=== PATIENT | female | born 1990 | race Caucasian/White ===

== ENCOUNTER 2022-10-31 16:04 | Inpatient (IN) | payer BC ==
[~2022-10-31 16:04] MED LIST: Bupivacaine 0.25% HCL 30 ML VIAL ONE; ePHEDrine Sulfate 50 MG/10 ML VIAL ONE
[2022-10-31] MEDS ORDERED: Butorphanol Tartrate 1 MG/ML VIAL SLOW IVP PRN (16:39)
[2022-10-31] MEDS ORDERED: NS w/ Oxytocin 30 units 500 ML IV SCH ×3 (16:39)
[2022-10-31] MEDS ORDERED: hydrALAZINE 20 MG/ML VIAL SLOW IVP PRN (16:39)
[2022-10-31] MEDS ORDERED: Lactated Ringer's 1,000 ML IV SCH (16:39)
[2022-10-31] MEDS ORDERED: Carboprost 250 MCG/ML AMP IM PRN (16:39)
[2022-10-31] MEDS ORDERED: Misoprostol 200 MCG TAB PR PRN (16:39)
[2022-10-31] MEDS ORDERED: Ondansetron PF 4 MG/2 ML Vial IVP PRN ×2 (16:39→22:55)
[2022-10-31] MEDS ORDERED: Zolpidem Tartrate 5 MG TAB PO PRN (16:39)
[2022-10-31] MEDS ORDERED: Acetaminophen 500 MG TAB PO PRN (16:39)
[2022-10-31] MEDS ORDERED: HYDROcodone/Acetaminophen 5/325 mg Tablet PO PRN ×2 (16:39)
[2022-10-31] MEDS ORDERED: Docusate 100 MG CAP PO PRN (16:39)
[2022-10-31] MEDS ORDERED: Lidocaine 1% (PF) 30 ML VIAL SC PRN (16:39)
[2022-10-31] MEDS ORDERED: Ibuprofen 800 MG TAB PO PRN (16:39)
[2022-10-31] MEDS ORDERED: Promethazine HCl 25 MG/ML VIAL IM PRN ×2 (16:39→22:55)
[2022-10-31] MEDS ORDERED: Diphenoxylate HCl/Atropine Tablet PO PRN ×2 (16:39)
[2022-10-31 17:11] VITALS: BMI 44.6
[2022-10-31 19:26] LABS: Hemoglobin 12.5 g/dL (12.0-15.5); Mean Corpuscular HGB CONC 33.4 g/dL (32.0-36.0); Mean Corpuscular Hemoglobin 29.1 pg (27.0-33.0); Mean Platelet Volume 10.8 fl (7.4-10.4); Platelet Count 342 10x3/uL (150-450); RBC Distribution Width 15.5 % (11.5-14.5); White Blood Cell (WBC) Count 13.4 10x3/uL (3.5-10.5)
[2022-10-31 20:00] LABS: HBSAg Index 0.17 S/CO (0-0.99); HIV (1/2) Antibody/Antigen Non-Reactive (NonReactive); HIV 1/2 INDEX 0.06 S/CO (<1.00); Hep B Surf Ag - L&D Non-Reactive S/CO (NonReactive)
[2022-10-31 20:01] LABS: Syphilis Antibody Nonreactive (Nonreactive); Syphilis Antibody Index 0.03 S/CO (<1.00 Non-Reactive)
[2022-10-31] MEDS ORDERED: Fentanyl 2 mcg/Bup 0.1% Cadd 100 ML ONE (22:04)
[2022-10-31] MEDS ORDERED: Lactated Ringer's 500 ML IV PRN (22:55)
[2022-10-31] MEDS ORDERED: Acetaminophen 325 MG TAB PO PRN (22:55)
[2022-10-31] MEDS ORDERED: Naloxone HCl 0.4 mg/ml Vial IVP PRN ×2 (22:55)
[2022-10-31] MEDS ORDERED: Moisturizing Cream (Eucerin) 113 GM JAR TOP PRN (22:55)
[2022-10-31] MEDS ORDERED: diphenhydrAMINE 50 MG/ML VIAL IVP PRN (22:55)
[2022-10-31] MEDS ORDERED: Fentanyl 2 mcg/Bupivacaine 0.1% Cassette 100 ML EPIDURAL SCH (23:00)
[2022-10-31] MEDS ORDERED: Communication Order-Pharmacy FS SCH (23:00)
[2022-11-01] MEDS: ePHEDrine Sulfate 50 MG/10 ML VIAL SLOW IVP PRN ×2 (00:01→00:37)
[2022-11-01] MEDS ORDERED: PHENYLEPHRINE-NS 100 MCG/ML 10 ML SYRINGE ONE ×2 (01:08→02:24)
[2022-11-01] MEDS ORDERED: HYDROcodone/Acetaminophen 5/325 mg Tablet PO PRN (07:13)
[2022-11-01] MEDS ORDERED: Zolpidem Tartrate 5 MG TAB PO PRN (07:13)
[2022-11-01] MEDS ORDERED: hydrALAZINE 20 MG/ML VIAL SLOW IVP PRN (07:13)
[2022-11-01] MEDS ORDERED: diphenhydrAMINE 25 MG CAP PO PRN (07:13)
[2022-11-01] MEDS ORDERED: Preparation H Ointment 28 GM TUBE PR PRN (07:13)
[2022-11-01] MEDS ORDERED: Bisacodyl 10 MG SUPP PR PRN (07:13)
[2022-11-01] MEDS ORDERED: Lanolin Ointment 7 GM TUBE TOP PRN (07:13)
[2022-11-01] MEDS ORDERED: Ondansetron PF 4 MG/2 ML Vial IVP PRN (07:13)
[2022-11-01] MEDS ORDERED: Misoprostol 200 MCG TAB VAG PRN (07:13)
[2022-11-01] MEDS ORDERED: Benzocaine-Menthol 82.5 ML CAN TOP PRN (07:13)
[2022-11-01] MEDS ORDERED: Milk Of Magnesia 30 ML UDCUP PO PRN (07:13)
[2022-11-01] MEDS ORDERED: Boostrix 0.5 ML (Tdap) VIAL (>/=7 yrs of age) IM ONE (07:13)
[2022-11-01] MEDS ORDERED: NS w/ Oxytocin 30 units 500 ML IV SCH (07:15)
[2022-11-01] MEDS: HYDROcodone/Acetaminophen 5/325 mg Tablet PO PRN (09:26)
[2022-11-01] MEDS: Ibuprofen 800 MG TAB PO SCH ×2 (14:01→23:00)
[2022-11-01] MEDS: Ferrous Sulfate 325 MG TAB PO SCH ×2 (18:09→18:10)
[2022-11-01] MEDS: Prenatal Vitamin 1 TAB PO SCH (18:10)
[2022-11-01] MEDS: Docusate 100 MG CAP PO SCH ×2 (18:10→20:50)
[2022-11-02 05:26] LABS: Mean Corpuscular HGB CONC 32.4 g/dL (32.0-36.0); Mean Corpuscular Hemoglobin 28.8 pg (27.0-33.0); Mean Platelet Volume 10.7 fl (7.4-10.4); Platelet Count 275 10x3/uL (150-450); RBC Distribution Width 15.9 % (11.5-14.5); Red Blood Cell (RBC) Count 3.47 10x6/uL (3.90-5.03); White Blood Cell (WBC) Count 14.6 10x3/uL (3.5-10.5)
[2022-11-02] MEDS: Ibuprofen 800 MG TAB PO SCH ×3 (05:59→21:55)
[2022-11-02] MEDS: Ferrous Sulfate 325 MG TAB PO SCH ×2 (07:27→16:58)
[2022-11-02] MEDS: Docusate 100 MG CAP PO SCH ×2 (07:59→21:55)
[2022-11-02] MEDS: Prenatal Vitamin 1 TAB PO SCH (07:59)
[2022-11-02] MEDS: HYDROcodone/Acetaminophen 5/325 mg Tablet PO PRN ×2 (07:59→17:00)
[2022-11-02 20:22] VITALS: TEMP 97.9
[2022-11-03] MEDS: Ibuprofen 800 MG TAB PO SCH (06:15)
[2022-11-03] MEDS: Prenatal Vitamin 1 TAB PO SCH (08:14)
[2022-11-03] MEDS: Docusate 100 MG CAP PO SCH (08:14)
[2022-11-03] MEDS: Ferrous Sulfate 325 MG TAB PO SCH (08:14)
[2022-11-03 08:37] VITALS: BP 118/57
== END 2022-11-03 13:10 | disposition home or self-care (01) | DRG 806 ==
LOC: CSHLD 16:04 → CSHPED 11-01 09:50
PROVIDERS: ADMIT Obstetrics & Gynecology; ATTEND Obstetrics & Gynecology
PROC: 10907ZC Drainage of Amniotic Fluid, Therapeutic from Products of Conception, Via Natural or Artificial Opening (ICD-10-PCS; 2022-10-31)
PROC: 10H07YZ Insertion of Other Device into Products of Conception, Via Natural or Artificial Opening (ICD-10-PCS; 2022-10-31)
PROC: 10D07Z6 Extraction of Products of Conception, Vacuum, Via Natural or Artificial Opening (ICD-10-PCS; principal; 2022-11-01)
DX: O36.8130 Decreased fetal movements, third trimester, not applicable or unspecified (principal); O99.354 Diseases of the nervous system complicating childbirth; Z37.0 Single live birth; Z3A.38 38 weeks gestation of pregnancy; O76 Abnormality in fetal heart rate and rhythm complicating labor and delivery; Z86.16 Personal history of COVID-19; D64.9 Anemia, unspecified; O99.02 Anemia complicating childbirth; E66.9 Obesity, unspecified; O99.214 Obesity complicating childbirth; G43.909 Migraine, unspecified, not intractable, without status migrainosus; Z79.899 Other long term (current) drug therapy; Z79.82 Long term (current) use of aspirin; O32.8XX0 Maternal care for other malpresentation of fetus, not applicable or unspecified
CPT/HCPCS: 36415; 51702; 85027; 86780; 86850; 86900; 86901; 87340; 87389; J2590; S0020